=== PATIENT | female | born 1970 | race Two or more races ===

== ENCOUNTER 2020-01-06 13:00 | Inpatient (IN) | payer OTHER ==
[~2020-01-06] VITALS: Ht 160 cm; Wt 72.6 kg
[~2020-01-06 13:00] MED LIST: ORPH100T PO
[2020-01-06] MEDS ORDERED: TRICOR145 MG (14:57)
[2020-01-06] MEDS ORDERED: SINGULAIR 10MG10 MG (14:58)
[2020-01-06] MEDS ORDERED: PULMICOR (15:30)
[2020-01-06] MEDS ORDERED: LEVALBUTER1.25 MG/3 (15:30)
[2020-01-12] MEDS ORDERED: PULMICORT1 MG/2 ML (09:47)
== END 2020-01-13 11:46 | disposition home or self-care (01) | DRG 743 ==
LOC: ADM 13:00 → SURH 01-12 04:00 → O/R 01-12 06:00 → OB/GYN 01-12 06:00 → EDSTATUS 01-12 13:00 → SURH 01-12 13:00 → CIR.AMB 01-12 13:00 → ADM 01-12 13:00 → OB/GYN 01-12 17:23
PROVIDERS: ADMIT Obstetrics & Gynecology Gynecologic Oncology
PROC: 0UT74ZZ Resection of Bilateral Fallopian Tubes, Percutaneous Endoscopic Approach (ICD-10-PCS; 2020-01-12)
PROC: 0UT04ZZ Resection of Right Ovary, Percutaneous Endoscopic Approach (ICD-10-PCS; 2020-01-12)
PROC: 0UT94ZZ Resection of Uterus, Percutaneous Endoscopic Approach (ICD-10-PCS; principal; 2020-01-12 04:00)
DX: N80.0 Endometriosis of uterus (principal); D25.1 Intramural leiomyoma of uterus; N72 Inflammatory disease of cervix uteri; N83.11 Corpus luteum cyst of right ovary; J45.20 Mild intermittent asthma, uncomplicated

== ENCOUNTER 2023-10-01 07:50 | Outpatient (CLI) | payer OTHER ==
[~2023-10-01 07:50] MED LIST changes: +LEVALBUTER1.25 MG/3; +PULMICOR; +PULMICORT1 MG/2 ML; +SINGULAIR 10MG10 MG; +TRICOR145 MG
== END 2023-10-01 07:52 | disposition home or self-care (01) ==
LOC: NUCLEAR 07:50
PROVIDERS: ATTEND Internal Medicine
DX: I11.9 Hypertensive heart disease without heart failure (principal)

== ENCOUNTER → 2023-10-12 08:02 | Outpatient (CLI) | payer OTHER | END | disposition home or self-care (01) | LOC: NUCLEAR 07:00 | DX: I25.10 Atherosclerotic heart disease of native coronary artery without angina pectoris (principal) ==